=== PATIENT | female | born 1935 | race Caucasian/White ===

== ENCOUNTER 2017-02-28 01:40 | Emergency (ER) | payer MEDICARE, OTHER ==
[2017-02-28 01:40] VITALS: BMI 28.3
[2017-02-28 02:50] VITALS: TEMP 98.1
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
[2017-02-28 04:06] LABS: BASO # 0.1 K/uL (0.0-0.2); BASO % 0.7 % (0.0-2.0); EOS # 0.2 K/uL (0.0-0.7); EOS % 1.8 % (0.0-4.0); HEMATOCRIT 31.9 % (34.0-47.0); LYMPH # 1.1 K/uL (1.0-4.3); LYMPH % 11.7 % (20.0-40.0); MEAN CELL VOLUME 87.5 fl (81.0-99.0); MEAN CORPUSCULAR HEMOGLOBIN 28.2 pg (27.0-31.0); MEAN CORPUSCULAR HGB CONC 32.2 g/dL (33.0-37.0); MEAN PLATELET VOLUME 9.1 fl (7.2-11.7); MONO # 0.8 K/uL (0.0-0.8); NEUT # 7.4 K/uL (1.8-7.0); NEUT % 77.8 % (50.0-75.0); NRBC % 0.1 % (0.0-0.0); RED CELL DISTRIBUTION WIDTH 16.8 % (11.5-14.5); WHITE BLOOD COUNT 9.5 K/uL (4.8-10.8)
[2017-02-28 05:02] LABS: ALB/GLOB RATIO 1.3 (1.0-2.1); ALKALINE PHOSPHATASE 83 U/L (38-126); ALT/SGPT 35 U/L (9-52); AST/SGOT 22 U/L (14-36); BILIRUBIN,TOTAL 0.2 mg/dl (0.2-1.3); BLOOD UREA NITROGEN 25 mg/dl (7-17); CALCIUM 9.1 mg/dL (8.4-10.2); CARBON DIOXIDE 26 mmol/L (22-30); CHLORIDE 109 mmol/L (98-107); GFR AFRICAN-AMERICAN > 60; GLUCOSE,RANDOM 107 mg/dL (65-105); POTASSIUM 4.2 MMOL/L (3.6-5.0); SODIUM 143 mmol/l (132-148)
[2017-02-28 08:47] VITALS: BP 121/65; PULSE 78; RESP 14; O2SAT 97
--- NOTE | 2017-02-28 12:14 | CARD ---
APPROVED REPORT EKG Measurement Heart [id number] <Conclusion> Normal sinus rhythm Inferior infarct, age undetermined Abnormal ECG
== END 2017-02-28 08:48 | disposition home or self-care (01) ==
LOC: H.ER 01:40
DX: F02.81 Dementia in other diseases classified elsewhere, unspecified severity, with behavioral disturbance (principal); E78.00 Pure hypercholesterolemia, unspecified; G30.9 Alzheimer's disease, unspecified; I10 Essential (primary) hypertension
CPT/HCPCS: 80053; 82140; 85025; 93005; 96372; 99284; J2060